=== PATIENT | female | born 1950 | race Caucasian/White ===

== ENCOUNTER 2019-12-22 08:01 | Outpatient (CLI) | payer MEDICARE, SELFPAY ==
--- NOTE | ~2019-12-22 | MM_ITS ---
EXAMINATION: MM screening tien BI w avelina HISTORY: Screening mammogram TECHNIQUE: Craniocaudal and mediolateral oblique 3-D tomosynthesis images were obtained and synthetic 2-D images were generated. CAD analysis was submitted and interpreted. COMPARISON: 12/15/2018 bilateral digital screening mammogram 10/24/2017 diagnostic right digital mammogram 10/08/2017 bilateral digital screening mammogram BREAST PARENCHYMAL COMPOSITION: The breasts are extremely dense, which lowers the sensitivity of mamm ography. FINDINGS: There are bilateral benign calcifications. There is no evidence of suspicious mass, calcifi cation, or architectural distortion to suggest malignancy in either breast. There has been no suspici ous interval change. IMPRESSION: 1. No mammographic evidence of malignancy. 2. Recommend routine screening mammography in one year. BI-RADS Category 2: Benign finding(s). Reviewed, dictated and finalized at location A. ICAL ASST
== END 2019-12-22 08:02 | disposition home or self-care (01) ==
LOC: ANHIMG 08:08
PROVIDERS: PCP Internal Medicine; Visit Provider Obstetrics & Gynecology
DX: Z12.31 Encounter for screening mammogram for malignant neoplasm of breast (principal)
CPT/HCPCS: 77063; 77067

== ENCOUNTER 2021-01-05 09:03 | Outpatient (CLI) | payer MEDICARE, SELFPAY ==
--- NOTE | ~2021-01-05 | MM_ITS ---
EXAMINATION: MM screening [facility] BI w avelina HISTORY: Screening mammogram TECHNIQUE: Craniocaudal and mediolateral oblique 3-D tomosynthesis images were obtained and synthetic 2-D images were generated. CAD analysis was submitted and interpreted. COMPARISON: 12/22/2019, 12/15/2018, 10/24/2017, 10/08/2017 BREAST PARENCHYMAL COMPOSITION: The breasts are extremely dense, which lowers the sensitivity of mamm ography. FINDINGS: Scattered benign-appearing calcifications are present. A stable asymmetry is present adjace nt to the biopsy marker in the right breast on the mediolateral oblique view, considered benign given the lack of interval change. There is no evidence of suspicious mass, calcification, or architectura l distortion to suggest malignancy in either breast. There has been no suspicious interval change. IMPRESSION: 1. No mammographic evidence of malignancy. 2. Recommend routine screening mammography in one year. BI-RADS Category 2: Benign finding(s). Reviewed, dictated and finalized at location A. GER CARGO
== END 2021-01-05 09:04 | disposition home or self-care (01) ==
LOC: ANHIMG 09:09
PROVIDERS: PCP Internal Medicine; Visit Provider Obstetrics & Gynecology
DX: Z12.31 Encounter for screening mammogram for malignant neoplasm of breast (principal)
CPT/HCPCS: 77063; 77067

== ENCOUNTER 2022-02-07 15:14 | Outpatient (CLI) | payer MEDICARE, SELFPAY ==
--- NOTE | ~2022-02-07 | MM_ITS ---
EXAMINATION: MM screening tien BI w avelina HISTORY: Screening mammogram TECHNIQUE: Craniocaudal and mediolateral oblique 3-D tomosynthesis images were obtained and synthetic 2-D images were generated. CAD analysis was submitted and interpreted. COMPARISON: 01/05/2021, 12/22/2019 BREAST PARENCHYMAL COMPOSITION: The breasts are extremely dense, which lowers the sensitivity of mamm ography. FINDINGS: Scattered benign-appearing calcifications are present. There is no suspicious mass, calcifi cation, or architectural distortion to suggest malignancy in either breast. There has been no suspici ous interval change. IMPRESSION: 1. No mammographic evidence of malignancy. 2. Recommend routine screening mammography in one year. BI-RADS Category 2: Benign finding(s). Reviewed, dictated and finalized at location A.
== END 2022-02-07 15:15 | disposition home or self-care (01) ==
PROVIDERS: PCP Internal Medicine; Visit Provider Obstetrics & Gynecology
DX: Z12.31 Encounter for screening mammogram for malignant neoplasm of breast (principal)
CPT/HCPCS: 77063; 77067

== ENCOUNTER → 2023-01-09 13:26 | Outpatient (CLI) | payer OTHER, SELFPAY ==
--- NOTE | ~2023-01-09 | DEXA_ITS ---
Bone Density Report Name: SAI GÓMEZ Age: 72 Sex: Female Ethnicity: White Date of : 1950 Indication: osteopenia; monitoring treatment; height loss; prior fracture; hysterectomy; postmenopausal Referring Provider: Speedy, Bal Study: Bone densitometry was performed. Exam Date: January 09, 2023 Accession number: [id number] Bone Density: Region BMD T-score Z-score Classification AP Spine (L1-L4) 0.899 -1.3 1.0 Osteopenia World Health Organization criteria for BMD impression classify patients as: Normal (T-score at or above -1.0), Osteopenia (T-score between -1.0 and -2.5), or Osteoporosis (T-score at or below -2.5). Previous Exams: Region Exam Age BMD T-score BMD Change BMD Change Date g/cm2 vs Baseline vs Previous AP Spine(L1-L4) 01/09/2023 72 0.899 -1.3 -0.026* 0.073* 07/16/2019 68 0.826 -2.0 -0.099* -0.099* 01/06/2017 66 0.925 -1.1 *Denotes significance at 95% confidence level, LSC for AP Spine = 0.022 g/cm2 Clinical Information Provided by Patient: Have had a previous hip or vertebral fracture Has had a low trauma fracture Is being treated for osteoporosis Has used the following medications: Fosamax (i.e. alendronate), Vitamin D, Calcium, MTV Has the following medical conditions: Hysterectomy, THYROID REMOVED Patient maximum height was 69 Menopause Age: 48 Does not regularly consume dairy products Onset of menses at age 13 Number of children 3 Impression: The patient has low bone mass, based on the Total Spine T-score. The patient has risk factors, including: previous fracture. No significant bone loss was observed. Discussion: PATIENT UNDER TREATMENT WITH NO SIGNIFICANT BMD LOSS SINCE LAST EXAM. In an untreated patient, BMD typically declines with age. A lack of decline or gain is usually a sign that treatment is efficacious and fracture risk is reduced. It is important to ask patients whether they are taking their medications and to encourage continued and appropriate compliance with their osteoporosis therapies to reduce fracture risk. It is also important to review their risk factors and encourage appropriate calcium and vitamin D intakes, exercise, fall prevention and other lifestyle measures. Follow-Up: Consider a repeat BMD and Vertebral Fracture Assessment (VFA) exam in 2 years or sooner if medically necessary, to reassess this patient's status. Reported by: LA on 01/09/2023 1:55:00 PM. Reviewed, dictated and finalized at location ABranden STEWART
== END ==
PROVIDERS: PCP Student in an Organized Health Care Education/Training Program; Visit Provider Student in an Organized Health Care Education/Training Program
DX: Z78.0 Asymptomatic menopausal state (principal); M85.88 Other specified disorders of bone density and structure, other site
CPT/HCPCS: 77080

== ENCOUNTER → 2023-04-02 09:55 | Outpatient (CLI) | payer OTHER, SELFPAY ==
--- NOTE | ~2023-04-02 | MM_ITS ---
EXAMINATION: MM screening tien BI w avelina HISTORY: Screening mammogram TECHNIQUE: Craniocaudal and mediolateral oblique 3-D tomosynthesis images were obtained and synthetic 2-D images were generated. CAD analysis was submitted and interpreted. COMPARISON: 02/07/2022, 01/05/2021, 12/22/2019 BREAST PARENCHYMAL COMPOSITION: The breasts are extremely dense, which lowers the sensitivity of mamm ography. FINDINGS: Scattered benign-appearing calcifications are present. No suspicious mass, calcification, o r architectural distortion are identified in either breast to suggest malignancy. There has been no s uspicious interval change. IMPRESSION: 1. No mammographic evidence of malignancy. 2. Recommend routine screening mammography in one year. BI-RADS Category 2: Benign finding(s). Reviewed, dictated and finalized at location A.
== END ==
PROVIDERS: PCP Obstetrics & Gynecology; Visit Provider Obstetrics & Gynecology
DX: Z12.31 Encounter for screening mammogram for malignant neoplasm of breast (principal)
CPT/HCPCS: 77063; 77067

== ENCOUNTER 2024-04-29 11:06 | Outpatient (CLI) | payer OTHER, SELFPAY ==
--- NOTE | ~2024-04-29 | MM_ITS ---
EXAMINATION: MM screening tien BI w avelina HISTORY: Screening TECHNIQUE: Craniocaudal and mediolateral oblique 3-D tomosynthesis images were obtained and synthetic 2-D images were generated. CAD analysis was submitted and interpreted. COMPARISON: Comparison to multiple prior studies sequentially, with oldest reviewed study dated 10/10. BREAST PARENCHYMAL COMPOSITION: Dense: The breasts are heterogeneously dense, which may obscure small masses FINDINGS: There is no evidence of suspicious mass, calcification, or architectural distortion to sugg est malignancy in either breast. There has been no suspicious interval change. IMPRESSION: 1. No mammographic evidence of malignancy. 2. Recommend routine screening mammography in one year. BI-RADS Category 1: Negative Reviewed, dictated and finalized at location B.
== END 2024-04-29 11:07 ==
PROVIDERS: PCP Student in an Organized Health Care Education/Training Program; Visit Provider Obstetrics & Gynecology
DX: Z12.31 Encounter for screening mammogram for malignant neoplasm of breast (principal)
CPT/HCPCS: 77063; 77067

== ENCOUNTER 2024-12-29 10:15 | Outpatient (CLI) | payer OTHER, SELFPAY ==
--- NOTE | ~2024-12-29 | DEXA_ITS ---
Bone Density Report Name: SAI GÓMEZ Age: 74 Sex: Female Ethnicity: White Date of : 1950 Indication: postmenopausal; screening for osteoporosis; height loss; hysterectomy; Referring Provider: PHYLICIA, FABY Study: Bone densitometry was performed. Exam Date: December 29, 2024 Accession number: [id number] Bone Density: Region BMD T-score Z-score Classification AP Spine(L1-L4) 0.906 -1.3 1.2 Osteopenia World Health Organization criteria for BMD impression classify patients as: Normal (T-score at or above -1.0), Osteopenia (T-score between -1.0 and -2.5), or Osteoporosis (T-score at or below -2.5). Clinical Information Provided by Patient: Has used the following medications: Fosamax (i.e. alendronate), Vitamin D, Calcium Has the following medical conditions: Hysterectomy Patient maximum height was 69.0 Menopause Age: 48 Onset of menses at age 12 Number of children 3 Impression: The patient has low bone mass, based on the Total Spine T-score. Discussion: BONE DENSITY IS LOW AT ONE OR MORE SKELETAL SITES. This patient's lowest T-score is low at one or more skeletal sites. It meets the World Health Organization's (WHO) criteria for ?low bone mass? (T-score between -1.0 and -2.5). The patient's 10-year risk of fracture as calculated by FRAX is less than the threshold where pharmacological therapy is recommended by the National Osteoporosis Foundation (NOF). However, all treatment decisions require clinical judgment and consideration of individual patient factors, including patient preferences, comorbidities, previous drug use, risk factors not captured in the FRAX model (e.g., frailty, falls, vitamin D deficiency, increased bone turnover, interval significant decline in bone density) and possible under or overestimation of fracture risk by FRAX. The patient should follow a healthful lifestyle (good nutrition with adequate calcium and vitamin D, and appropriate weight-bearing exercise). Follow-Up: Consider repeating this study in 2 to 3 years to reassess this patient's status, or sooner if there is some new clinical indication. Reported by: SANTIAGO huddleston 12/29/2024 10:45:00 AM. Reviewed, dictated and finalized at location [facility]
--- OUTSIDE RECORDS SUMMARY | 2024-12-29 10:29 | XMS_ITS | Clinical Summary ---
Author Organization [facility] Address [address] [place] [address] Care Team Providers Care Planogrammer Name Role Phone Bal Ruff Preethi ANDREW Primary Care Provider + Allergies Active Allergy Reactions Criticality Noted Date Comments Nitrofurantoin Unknown 11/26/2024 Penicillins Rash Low 01/02/2023 Tape Rash Medium 06/25/2023 Medications rosuvastatin (CRESTOR) 5 MG tabletIndications: Hyperlipidemia, unspecified hyperlipidemia type Take 1 tablet (5 mg total) by mouth nightly at bedtime. 90 tablet 1 09/09/20 23 Active Additional Information Patient not taking.Reported on 07/28/2024 levothyroxine (SYNTHROID) 88 MCG tabletIndications: Postoperative hypothyroidism take 1 tablet by mouth every day 90 tablet 1 07/26/20 24 Active alendronate (FOSAMAX) 70 MG tabletIndications: Age-related osteoporosis without current pathological fracture TAKE 1 TABLET BY MOUTH ONCE PER WEEK 12 tablet 2 08/16/20 24 Active gabapentin (NEURONTIN) 300 MG capsuleIndications :Lumbar radiculopathy TAKE 1 CAPSULE BY MOUTH FOUR TIMES A DAY 360 capsule 1 09/08/20 24 Active nitrofurantoin, macrocrystal-monoh ydrate, (MACROBID) 100 MG capsuleIndications :UTI (urinary tract infection) Take 1 capsule (100 mg total) by mouth 2 (two) times daily for 7 days. 14 capsule 11/26/19 25 025 sulfamethoxazole-t rimethoprim (BACTRIM DS) 800-160 MG tabletIndications: UTI (urinary tract infection) Take 1 tablet by mouth 2 (two) times daily for 7 days. 14 tablet 11/26/19 25 025 Active Problems Problem Noted Date Diagnosed Date Hyperlipidemia, unspecified hyperlipidemia type 09/09/2023 Lumbar radiculopathy 07/02/2023 Varicose veins of lower extremity 06/25/2023 Overview (07/02/2023): Last Assessment & Plan: Patient with bilateral lower extremity scattered spider veins, left anterior calf reticular vein. These are asymptomatic. No indication for surgical procedure intervention at this time. Educated patient the importance of compression therapy, leg elevation. Will refer to Dr. Hartman for management of spider veins. Patient to follow-up in the office on as-needed basis Varicose veins of right lower extremity with gaby n 06/25/2023 Overview (07/28/2024): Last Assessment & Plan: Healed ulceration louis to the right medial ankle with surrounding extensive reticular veins. Plan: Continue compression therapy and follow up in the next few weeks with a venous reflux bilaterally and to check for venous mechanical lead to the right ankle. Age-related osteoporosis wit hout current pathological fracture 01/05/2023 Postoperative hypothyroidism 01/02/2023 Resolved Problems Problem Noted Date Diagnosed Date Resolved Date Arthralgia of hip 02/12/2017 07/02/2023 Encounters Date Type Department Care Team Description 11/26/2024 Telephone [facility] Family & Internal Medicine [address] [phone] Bal Ruff, DO UTI from Last 3 Months Immunizations Name Administration Dates Next Due Influenza (Generic) 08/24/2014,08/19/2012 Influenza Adult (Generic) 10/13/2019,08/2018,08/25/2017,08/12/2016,2014 Pneumococcal (Prevnar 13) 07/20/2018 Tdap (Generic) 07/20/2018 Family History Medical History Relation Comments Heart Disease Mother Arthritis Sister 1 Cancer Sister 1 Miscarriages / Stillbirths Sister 1 Cancer Sister 2 Relation Status Comments Brother Father Mother Sister 1 Sister 2 Social History Tobacco Use Types Packs/Day Years Used Date Smoking Tobacco: Never Passive Smoke Exposure: Past Smokeless Tobacco: Never Tobacco Cessation:Counseling Given: Not Answered Passive Exposure Comments:spouse but never inside the house. 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 Gender Identity Not on file Sexual Orientation Not on file Occupation Industry Job Start Date Job End Date Not on file Not on file Not on file Not on file Last Filed Vital Signs Vital Sign Reading Time Taken Comments Blood Pressure 124/68 07/28/2024 8:26 AM CDT Pulse 67 07/28/2024 8:26 AM CDT Temperature 36.5 C (97.7 F) 07/28/2024 8:26 AM CDT Respiratory Rate 16 07/28/2024 8:26 AM CDT Oxygen Saturation 98% 07/28/2024 8:26 AM CDT Inhaled Oxygen Concentration - - Weight 63.9 kg (140 lb 14.4 oz) 07/28/2024 8:26 AM CDT Height 171.5 cm (5' 7.5 ) 07/28/2024 8:26 AM CDT Body Mass Index 21.74 07/28/2024 8:26 AM CDT Plan of Treatment Upcoming Encounters Date Type Department Care Team (Late st Contact Info) Description 01/26/2025 8:20 AM CDT Office Visit [facility] Family & Internal Medicine [address] [phone] Bal Ruff P, DO [address] [place] [phone] Health Maintenance Due Date Last Done Comments Annual Medicare Wellness Visit 2013 RSV Immunization or 60+ Years (1 - 1-dose 75+ series) 2023 Influenza Adult (#1) 2024 10/13/2019, 07/20/2018, 08/25/2017, Additional history exists PHQ-2 (Physician [place]) 11/10/2024 01/21/2024 Pneumococcal Vaccine: 65+ Years (2 of 2 - PPSV23 or PCV20) 01/20/2025 07/20/2018 Postponed from 07/20/2019 (Patient Refused) Zoster Vaccines (1 of 2) 01/20/2025 Pos tponed from 1998 (Patient Refused) COVID-19 Vaccine ( - season) 2025 Postponed from 07/11/2024 (Going to Outside Clinic) Colorectal Cancer Screening FIT-DNA (3 Years) 01/27/2027 01/28/2024, 01/28/2024, 01/17/2020 DTaP, Tdap and Td Vaccines (2 - Td or Tdap) 07/20/2028 07/20/2018 Dexa Scan (General) Completed 01/09/2023 Hepatitis C Completed 07/02/2023 Meningococcal B Vaccine Aged Out No l onger eligible based on patient's age to complete this topic Meningococcal Vaccine Aged Out No sherrell renita eligible based on patient's age to complete this topic RSV Immunizations Under 20 Months Aged Out No longer eligible based on patient's age to complete this topic Procedures Procedure Name Priority Date/Time Associated Diagnosis Comments COLOGUARD (EXACT SCIENCE) Routine 01/28/2024 7:00 AM CDT Screening for malignant neoplasm of colon HEPATITIS C ANTIBODY Routine 07/02/2023 9:12 AM CDT Annual physical exam Need for hepatitis C screening test BONE DENSITY GENERIC (SCAN ORDER) 01/09/2023 from Last 3 Months or Most Recently Relevant to Health Maintenance Results * COLOGUARD (EXACT SCIENCE) (01/28/2024 7:00 AM CDT) COLOGUARD RESULT Negative Negative [facility] (CLIA #:[id number]) Comment: NEGATIVE TEST RESULT. A negative Cologuard result indicates a low likelihood that a colorectal cancer (CRC) or advanced adenoma (adenomatous polyps with more advanced pre-malignant features) is present. The chance that a person with a negative Cologuard test has a colorectal cancer is less than 1 in 1500 (negative predictive value >99.9%) or has an advanced adenoma is less than 5.3% (negative predictive value 94.7%). These data are based on a prospective cross-sectional study of 10,000 individuals at average risk for colorectal cancer who were screened with both Cologuard and colonoscopy. (Rob Rea al, N Engl J Med 2014;370(14):4398-4502) The normal value (reference range) for this assay is negative. COLOGUARD RE-SCREENING RECOMMENDATION: Periodic colorectal cancer screening is an important part of preventive healthcare for asymptomatic individuals at average risk for colorectal cancer. Following a negative Cologuard result, the [place] Cancer Society and U.S. Multi-Society Task Force screening guidelines recommend a Cologuard re-screening interval of 3 years. References: [place] [employer] Guideline for Colorectal Cancer Screening: https://www.cancer.org/cancer/xubnh-latpml-mmlpvn/rkepevwro-ynqtqumik-igowoeq/ac s-rec ommendations.html.; Yobani ENGLISH, Hannah REYES, Bhanu SoodK, Colorectal Cancer Screening: Recommendations for Physicians and Patients from the U.S. Multi-Society Task Force on Colorectal Cancer Screening , Am J Gastroenterology 2017; 112:9535-6957. TEST DESCRIPTION: Composite algorithmic analysis of stool DNA-biomarkers with hemoglobin immunoassay. Quantitative values of individual biomarkers are not reportable and are not associated with individual biomarker result reference ranges. Cologuard is intended for colorectal cancer screening of adults of either sex, 45 years or older, who are at average-risk for colorectal cancer (CRC). Cologuard has been approved for use by the U.S. FDA. The performance of Cologuard was established in a cross sectional study of average-risk adults aged 50-84. Cologuard performance in patients ages 45 to 49 years was estimated by sub-group analysis of near-age groups. Colonoscopies performed for a positive result may find as the most clinically significant lesion: colorectal cancer [4.0%], advanced adenoma (including sessile serrated polyps greater than or equal to 1cm diameter) [20%] or non- advanced adenoma [31%]; or no colorectal neoplasia [45%]. These estimates are derived from a prospective cross-sectional screening study of 10,000 individuals at average risk for colorectal cancer who were screened with both Cologuard and colonoscopy. (Rob Rea al, N Engl J Med 2014;370(14):7658-0974.) Cologuard may produce a false negative or false positive result (no colorectal cancer or precancerous polyp present at colonoscopy follow up). A negative Cologuard test result does not guarantee the absence of CRC or advanced adenoma (pre-cancer). The current Cologuard screening interval is every 3 years. ([place] Cancer Society and U.S. Multi-Society Task Force). Cologuard performance data in a 10,000 patient pivotal study using colonoscopy as the reference method can be accessed at the following location: www.RealtyAPX/results. Additional description of the Cologuard test process, warnings and precautions can be found at www.cologJinnrd.Passbox. STOOL STOOL SPECIMEN / Unknown 01/28/2024 7:00 AM CDT 01/29/2024 8:22 AM CDT us Bal Ruff DO BODY FLUIDS AND STOOLS O RDERABLES Final Result Performing Organization Address [facility] Co de Phone Number [facility], [facility] [address] [phone], [facility] (CLIA #:[id number]) [address] [place] [address] * HEPATITIS C ANTIBODY ([facility] ONLY) (07/02/2023 9:12 AM CDT) HEPATITIS C AB NON-REACTI VE NON-REACT NOE 07/02/2023 7:32 PM CDT [facility] Comment: ANTIBODIES TO HCV NOT DETECTED. DOES NOT EXCLUDE THE POSSIBILITY OF EXPOSURE TO HCV. 07/02/2023 9:12 AM CDT Bal Ruff DO LABORATORY Final Re sult Performing Organization Address [facility] Co de Phone Number [facility] [address] [place] [id number] * BONE DENSITY GENERIC (01/09/2023) Anatomical Region Laterality Modality Other 01/09/2023 us Doc [facility] Scanned SCANNING Final Resu lt from Last 3 Months or Most Recently Relevant to Health Maintenance Insurance [employer] Care Teams Planogrammer Relationship Specialty Start Date End Date Bal Ruff DO [address] [place] [id number] PCP - General FAMILY PRACTICE 01/02/23
--- OUTSIDE RECORDS SUMMARY | 2024-12-29 10:29 | XMS_ITS | Referral Summary ---
Author Organization [facility] Address [address] [place] [address] Care Team Providers Care Concrete Vault Maker Name Role Phone Bal Ruff Primary Care Provide r Allergies Active Allergy Reactions Criticality Noted Date Comments Adhesive Rash Medium 06/25/2023 Penicillins Medications levothyroxine (SYNTHROID) 88 mcg tablet Take 1 tablet (88 mcg total) by mouth daily Active alendronate (FOSAMAX) 70 mg tablet Take 1 tablet (70 mg total) by mouth every 7 days 06/22/2023 Active gabapentin (NEURONTIN) 300 mg capsule Take 1 capsule (300 mg total) by mouth 4 (four) times a day Active Active Problems Problem Noted Date Diagnosed Date Varicose veins of right lower extremity with gaby n 06/25/2023 Assessment & Plan (08/04/2024 11:17 AM CDT): No bulky varicosities. Reticular veins noted to the right ankle and minor noted to the left ankle. No open ulcerations. Seen with Dr. Herr. Discussed the reflux study as well, and as she has no recurrence of ulcerations, would like to continue compression therapy and follow up as needed. If she starts to develop recurrent ulcerations with difficulty healing and follow-up sooner. Assessment & Plan (07/07/2024 11:10 AM CDT): Healed ulceration louis to the right medial ankle with surrounding extensive reticular veins. Plan: Continue compression therapy and follow up in the next few weeks with a venous reflux bilaterally and to check for venous corporate financial analyst to the right ankle. Assessment & Plan (07/07/2024 9:44 AM CDT): Reticular veins noted to the right lower extremity from the calf extending down into the ankle and foot. Has a healed ulceration to the medial ankle and starting to develop another. Is using triamcinolone cream currently. Plan: Continue utilize compression therapy, follow up in the next couple of weeks with a venous reflux to both lower extremities and to check for a venous corporate financial analyst. Assessment & Plan (06/25/2023 11:47 AM CDT): Patient with bilateral lower extremity scattered spider veins, left anterior calf reticular vein. These are asymptomatic. No indication for surgical procedure intervention at this time. Educated patient the importance of compression therapy, leg elevation. Will refer to Dr. Hartman for management of spider veins. 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 Care Teams Concrete Vault Maker Relationship Specialty Start Date End Date Bal Ruff DO [address] [place] [id number] PCP - General Family Medicine 06/23/23
--- OUTSIDE RECORDS SUMMARY | 2024-12-29 10:29 | XMS_ITS | Clinical Summary ---
Author Organization [facility] Address [address] [place] [address] Care Team Providers Care Soil Conservationist Name Role Phone Bal Ruff Primary Care [...] reflux bilaterally and to check for venous employee relations consultant to the right ankle. Assessment & Plan [...] extremities and to check for a venous employee relations consultant. Assessment & Plan (06/25/2023 11:47 AM CDT): [...] on as-needed basis Arthralgia of hip 02/12/2017 Family History Medical History Relation Name Comments Cancer Brother Family history of malignant neoplasm - (Added by TW Conv) Cancer Sister Family history of malignant neoplasm - (Added by TW Conv) Relation Name Status Comments Brother Sister Social History Tobacco Use Types Packs/Day Years Used Date Smoking Tobacco: Never Tobacco Cessation:Counseling Given: Not Answered Personal Safety Answer Date Recorded Getting School Help Needed Not on file 12/26 Comments Unknown Sex and Gender Information Value Date Recorded Sex Assigned at Not on file 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 Gender Identity Not on file Sexual Orientation Not on file Obstetrics History Last Filed Vital Signs Vital Sign Reading [...] 06/25/2023 9:28 AM CDT Plan of Treatment Health Maintenance Due Date Last Done Comments Colon Cancer Screening-Colonoscopy 1950 Depression Screening 1950 Fall Risk Assessment 1950 Hepatitis C Screening 1950 Osteoporosis Screening-Bone Density Scan 1950 Hepatitis B Screening 1966 Zoster Vaccine (1 of 2) 1998 Well Visit 65+ 2013 Pneumococcal vaccine 65+ (2 of 2 - PPSV23) 07/20/2019 07/20/2018 Influenza Vaccine (#1) 2024 9, 07/20/2018, 08/25/2017, Additional history exists DTaP/Tdap/Td Vaccine (2 - Td or Tdap) 07/20/2028 07/20/2018 Breast Cancer Screening-Mammogram Discontinued 013 Insurance [facility] Member Subscriber Plan / Payer (Ef fective 2022-Present) Name:Judit Gandara Relation to Subscriber:Self Name:Judit Gandara Payer ID:[id number] (NAIC) Type:MEDICARE RISK OTHER Address: [place] [id number] Care Teams Soil Conservationist Relationship Specialty Start Date End Date Bal Ruff DO [address] [place], [place] [id number] PCP - General Family Medicine 06/23/23
== END 2024-12-29 10:16 | disposition home or self-care (01) ==
LOC: ANHIMG 10:16
PROVIDERS: PCP Student in an Organized Health Care Education/Training Program; Visit Provider Student in an Organized Health Care Education/Training Program
DX: M81.0 Age-related osteoporosis without current pathological fracture (principal); M85.88 Other specified disorders of bone density and structure, other site
CPT/HCPCS: 77080

== ENCOUNTER 2025-05-02 10:18 | Outpatient (CLI) | payer OTHER, SELFPAY ==
--- NOTE | ~2025-05-02 | MM_ITS ---
EXAMINATION: MM screening tien BI w avelina HISTORY: Screening mammogram TECHNIQUE: Craniocaudal and mediolateral oblique 3-D tomosynthesis images were obtained and synthetic 2-D images were generated. CAD analysis was submitted and interpreted. COMPARISON: 04/29/2024, 04/02/2023, 02/07/2022 BREAST PARENCHYMAL COMPOSITION:Dense: The breasts are heterogeneously dense, which may obscure small masses. FINDINGS: No suspicious mass, calcification, or architectural distortion are identified in either toma ast to suggest malignancy. There has been no suspicious interval change. IMPRESSION: No mammographic evidence of malignancy. Recommend routine screening mammography in one year. BI-RADS Category 1: Negative Reviewed, dictated and finalized at location .
== END 2025-05-02 10:19 | disposition home or self-care (01) ==
PROVIDERS: PCP Student in an Organized Health Care Education/Training Program; Visit Provider Obstetrics & Gynecology
DX: Z12.31 Encounter for screening mammogram for malignant neoplasm of breast (principal)
CPT/HCPCS: 77063; 77067

== ENCOUNTER 2025-10-11 10:51 | Emergency (ER) | payer OTHER, SELFPAY ==
--- NOTE | ~2025-10-11 | XR_ITS ---
XR ankle LT min 3V, XR tibia fibula LT 2V 10/11/2025 12:59 Indication: Left leg pain after fall Procedure: 4 views left ankle and 2 views left tibia/fibula Comparison: No prior studies for comparison. Findings: No fracture, subluxation or dislocation. Ankle mortise intact. Talar dome within normal limits. Small degenerative calcaneal enthesophytes. There is osteoarthritis of the left knee. Osteopenia. Impression: 1: No acute fracture. Reviewed, dictated and finalized at location I. ANALYST Impression: 1: No acute fracture. Impression: 1: No acute fracture.
--- NOTE | ~2025-10-11 | CT_ITS ---
CT HEAD NON-CONTRAST CT C-SPINE Clinical History: fall Comparison: None Technique: Unenhanced axial images skull base to vertex. Coronal, sagittal reformats. Axial images thoracic inlet to skull base. Sagittal and coronal reformats. CT images acquired with automatic exposure control for dose reduction DLP: 605 mGy-cm Findings: Head: Left-sided holohemispheric subdural hemorrhage. 11 mm maximal thickness. 4 mm emrf-bu-lqdxv midline shift. Sulci, ventricles: Unremarkable. No evidence acute territorial infarct. Bony calvarium intact. Visualized paranasal sinuses: Ethmoid disease. Mastoid air cells: Clear. C-spine: No acute fracture. Straightening of normal cervical lordosis. Moderate degenerative changes, with disc disease C5-6. Prevertebral soft tissues within normal limits. Minimal grade 1 retrolisthesis C5 on 6. Visualized lung apices: Clear. Visualized thyroid: Unremarkable. No enlarged cervical nodes. Findings relayed via telephone by myself to Dr Shaikh at 1:42 PM EST. IMPRESSION: HEAD: 1. Left-sided holohemispheric subdural hemorrhage, 11 mm maximal thickness. 2. 4 mm mbqp-vk-jwnnp midline shift. C-SPINE: 1. No acute fracture. Reviewed, dictated and finalized at location R. [employer] IMPRESSION: HEAD: 1. Left-sided holohemispheric subdural hemorrhage, 11 mm maximal thickness. 2. 4 mm mgos-ex-etivg midline shift. C-SPINE: 1. No acute fracture. IMPRESSION: HEAD: 1. Left-sided holohemispheric subdural hemorrhage, 11 mm maximal thickness. 2. 4 mm ovsz-tp-shzbp midline shift. C-SPINE: 1. No acute fracture.
[2025-10-11 10:57] VITALS: BP 144/80; PULSE 78; RESP 20; TEMP 36.4; O2SAT 100
--- NOTE | 2025-10-11 12:12 | PC.NURSE ---
WOUND IRRIGATED WITH NS, 100ML. PATIENT TOLERATED WELL. STAPLER AND REMOVER PLACED AT BEDSIDE.
[2025-10-11] MEDS: HYDROcodone/acetaminophen (*CRX) 5-325 MG TABLET 1 TAB PO (12:17)
--- NOTE | 2025-10-11 13:14 | ED_ITS ---
HPI - General Adult General Chief complaint: Fall Stated complaint: fall Time Seen by Provider: 10/11/25 10:59 History of Present Illness HPI narrative: 74-year-old female presenting after a fall down her steps. Patient states she fell down about 10 steps hitting the left side of her head sustaining a 5 cm laceration. The patient reports a significant headache that has been well as left lower extremity pain. Patient denies loss of consciousness, dizziness, nausea/vomiting, vision changes, or sensitivity to light/sound. Patient is not on blood thinners. Related Data Allergies Allergy/AdvReac Type Severity Reaction Status Date / Time Penicillins Allergy Mild Rash Verified 10/11/25 11:06 Review of Systems 2 Review of Systems: All systems reviewed & are unremarkable except as noted in HPI and below PMFSH Past Medical History Medical History Hypothyroidism Osteoarthritis of hands, bilateral Peripheral polyneuropathy Surgical History Surgical History Status post total hip replacement, bilateral Family History Family History Mother Family history of congestive heart failure, Onset Age: 98 Social History Social History (Updated 09/25/22 @ 08:53 by Vee Sosa MA) Smoking status: Never smoker Second hand tobacco smoke exposure: No Alcohol intake: current Substance use: never Lack of Transportation: No Lack of Food: Never True Current Housing: I Have Housing Concerned About Future Housing: No Difficulty Paying Gas/Electric Bills: No Difficulty Paying for Meds: No Currently Unemployed: No Education: High School Diploma/GED Difficulty w/ Childcare or Family Care: No Exam 2 Narrative: GENERAL: No acute distress. HEAD: L-sided lateral-posterior laceration about 5 cm. Bleeding controlled. Significant amount of blood matted in her hair. EYES: PERRLA and EOMI. ENT: Nares clear, no rhinorrhea or epistaxis. Mucous membranes moist. Oropharynx without tonsillar hypertrophy exudate or other lesions. Bilateral TMs pearly garg non-bulging NECK: Supple. No adenopathy or masses. No carotid bruits or JVD CHEST: Clear to auscultation. No respiratory distress. No wheezes rales or rhonchi HEART: Regular rate and rhythm. No murmur heard. Normal peripheral pulses. ABDOMEN: Soft, nontender, nondistended, normal active bowel sounds. EXTREMITIES: Normal range of motion. No edema. SKIN: Warm, dry, no rash. NEURO: A&O X3. Speech clear. Follows commands. CN II-XII intact. Sensation grossly intact. No ataxic movements. Strength 5/5 in upper and lower extremities bilaterally. [id number]-gz-xitb testing intact bilaterally. No pronator drift. Gait evaluation limited due to LLE pain from fall. PSYCH: Normal mood and affect Course Vital Signs Vital signs: Vital Signs Temperature 97.5 F L 10/11/25 10:57 Pulse Rate 78 10/11/25 10:57 Respiratory Rate 20 10/11/25 10:57 Blood Pressure 144/80 H 10/11/25 10:57 Pulse Oximetry 100 10/11/25 10:57 Oxygen Delivery Room Air 10/11/25 10:57 Temperature 97.5 F L 10/11/25 10:57 Pulse Rate 84 10/11/25 14:53 Respiratory Rate 16 10/11/25 14:53 Blood Pressure 126/84 10/11/25 14:53 Pulse Oximetry 98 10/11/25 14:53 Oxygen Delivery Room Air 10/11/25 10:57 MDM MDM Narrative Medical decision making narrative: 74-year-old female presenting after a fall down her steps. Patient states she fell down about 10 steps hitting the left side of her head sustaining a 5 cm laceration. The patient reports a significant headache that has been well as left lower extremity pain. Patient denies loss of consciousness, dizziness, nausea/vomiting, vision changes, or sensitivity to light/sound. Patient is not on blood thinners. Upon my initial assessment patient is nontoxic and has stable vitals. She has a significant amount of matted blood surrounding her head laceration. Bleeding is controlled. Imaging demonstrates left-sided holohemispheric subdural hemorrhage, 11 mm maximal thickness with 4 mm fiwj-id-cqeop midline shift. No acute neck fracture. No acute left lower extremity fractures. Patient's neuro exam is promising with no focal deficits. Administered [place] which has improved patient's pain. Discussed with Dr. Rivera with [facility] Emergency Department patient presentation and workup. Agrees with transfer at this time. Patient is stable pending transfer. While awaiting transport patient suddenly became pale and hypotensive. She recovered quickly. Blood pressure recheck was 113/58 and paleness improved. Repeat neuro exam remains intact. Continuing to monitor. Was unable to staple laceration prior to transport. Irrigated and placed a dressing. Did not inquire about tetanus; however patient's chart indicates last tetanus in 2019. Differential Diagnosis Differential Diagnosis: Differential diagnostic considerations for head injury/trauma include post- concussion syndrome, closed head injury, intercranial hemorrhage, basilar skull fracture, facial fractures, globe injury, laceration. Medical Records I have reviewed the following patient records and this information was taken into consideration when formulating the assessment and plan.: previous labs Lab Data MDM Lab Attestation statement: I personally reviewed the patient's lab results. 10/11/25 13:09 10/11/25 13:09 Labs: Lab Results 10/11/25 Range/Units 13:09 WBC 9.9 (4.5-10.0) K/mm3 RBC 3.88 L (4.2-5.4) M/mm3 Hgb 12.1 (12.0-15.0) g/dL Hct 36.1 L (37.0-47.0) % MCV 93.0 (80-100) fl MCH 31.2 (26-34) pg MCHC 33.5 (32-36) g/dl RDW 13.3 (11.5-14.5) % Plt Count 298 (150-375) k/mm3 MPV 8.9 (7.4-10.4) fl Immature Gran % (Auto) 0.6 H (0-0.5) % Neut % (Auto) 83.7 H (45.5-73.1) % Lymph % (Auto) 7.3 L (18.3-44.2) % Burke % (Auto) 7.0 (2.6-8.5) % Eos % (Auto) 1.0 (0-4.4) % Baso % (Auto) 0.4 (0.2-1.2) % Lymph # (Auto) 0.72 L (0.9-3.2) K/mm3 Burke # (Auto) 0.7 H (0.1-0.6) K/mm3 Eos # (Auto) 0.1 (0-0.3) K/mm3 Baso # (Auto) 0.0 (0.0-0.1) K/mm3 Abs Immat Gran (auto) 0.06 H (0.00-0.031) K/mm3 Absolute Neuts (auto) 8.3 H (1.3-6.7) K/mm3 Absolute Nucleated RBC 0.000 (0.0-0.012) K/mm3 Nucleated RBC % 0.0 (0.0-0.2) % PT 14.2 (11.1-14.7) Seconds INR 1.1 APTT 30.5 (22.3-36.8) Seconds Sodium 130 L (137-145) mmol/L Potassium 3.8 (3.4-5.0) mmol/L Chloride 98 (98-107) mmol/L Carbon Dioxide 27 (22-30) mmol/L Anion Gap 5 (4-12) mmol/L BUN 10 (7-17) mg/dL Creatinine 0.58 L (0.7-1.0) mg/dL Estim Creat Clear Calc 68 ml/min Estimated GFR > 60 (59 - ) Glucose 122 H (65-110) mg/dL Calcium 8.7 (8.4-10.2) mg/dL Total Bilirubin 0.5 (0.2-1.3) mg/dL AST 37 H (14-36) U/L ALT 21 (6-35) U/L Alkaline Phosphatase 68 (38-126) U/L Total Protein 7.4 (6.3-8.2) g/dL Albumin 4.2 (3.5-5.1) g/dL Imaging Data Attestation: I personally reviewed and interpreted this imaging study as follows: Radiologist's impression: ITS Impressions Cervical Spine CT 10/11/25 12:37 IMPRESSION: HEAD: 1. Left-sided holohemispheric subdural hemorrhage, 11 mm maximal thickness. 2. 4 mm csov-hl-mqezv midline shift. C-SPINE: 1. No acute fracture. Head CT 10/11/25 12:37 IMPRESSION: HEAD: 1. Left-sided holohemispheric subdural hemorrhage, 11 mm maximal thickness. 2. 4 mm ueui-fq-brkwh midline shift. C-SPINE: 1. No acute fracture. Ankle X-Ray 10/11/25 13:03 Impression: 1: No acute fracture. Tibia/Fibula X-Ray 10/11/25 13:03 Impression: 1: No acute fracture. Discharge Plan Discharge Clinical Impression: Subdural hemorrhage following injury, Laceration of head, Head injury, Fall Patient Disposition: Acute Care Hospital Condition: Stable Patient Language: Dutch Prescriptions: No Action alendronate 70 mg tablet See Rx Instructions .ROUTE .COMPLEX Qty: 12 2RF Dose Instruction: TAKE 1 TABLET BY MOUTH ONCE PER WEEK Rx Instructions: TAKE 1 TABLET BY MOUTH ONCE PER WEEK levothyroxine 88 mcg tablet 88 mcg PO DAILY Qty: 90 1RF gabapentin 300 mg capsule 300 mg PO QID Qty: 360 1RF Rx Instructions: Take 1 capsule by mouth 4 times a day. naproxen 500 mg tablet 500 mg PO BID Qty: 90 1RF Follow-up/Referrals: Speedy,DO Bal [Primary Care Provider]
[2025-10-11 13:17] VITALS: BP 137/62; PULSE 98; RESP 16; O2SAT 99
[2025-10-11 13:19] LABS: Hematocrit 36.1 % (37.0-47.0); Hemoglobin 12.1 g/dL (12.0-15.0); Immature Granulocyte Percent A 0.6 % (0-0.5); Lymphocytes Absolute Auto 0.72 K/mm3 (0.9-3.2); Mean Corpuscular HGB Conc 33.5 g/dl (32-36); Mean Corpuscular Hemoglobin 31.2 pg (26-34); Mean Corpuscular Volume 93.0 fl (80-100); Nucleated Red Blood Cells Absolute Auto 0.000 K/mm3 (0.0-0.012); Nucleated Red Blood Cells Perc 0.0 % (0.0-0.2); Platelet Count Result 298 k/mm3 (150-375); Red Blood Count 3.88 M/mm3 (4.2-5.4); White Blood Count 9.9 K/mm3 (4.5-10.0)
[2025-10-11 13:22] VITALS: BP 137/69
[2025-10-11 13:31] LABS: Alanine Aminotransferase 21 U/L (6-35); Albumin Level 4.2 g/dL (3.5-5.1); Alkaline Phosphatase 68 U/L (38-126); Anion Gap 5 mmol/L (4-12); Aspartate Amino Transferase 37 U/L (14-36); Bilirubin,Total 0.5 mg/dL (0.2-1.3); Blood Urea Nitrogen 10 mg/dL (7-17); Calcium 8.7 mg/dL (8.4-10.2); Carbon Dioxide 27 mmol/L (22-30); Chloride 98 mmol/L (98-107); Estimated CRCL calculation 68 ml/min; Estimated Glomerular Filt Rate > 60; Glucose 122 mg/dL (65-110); Potassium 3.8 mmol/L (3.4-5.0); Sodium 130 mmol/L (137-145); Total Protein 7.4 g/dL (6.3-8.2)
[2025-10-11 13:52] LABS: INR 1.1; Prothrombin Time 14.2 Seconds (11.1-14.7)
[2025-10-11 13:53] LABS: Partial Thromboplastin Time 30.5 Seconds (22.3-36.8)
[2025-10-11 14:00] VITALS: BP 86/50; PULSE 73; RESP 12; O2SAT 97
--- NOTE | 2025-10-11 14:07 | PC.NURSE ---
patient noted to have decreased BP after oral pain management. pain had initially been improved but spiked with blowing her nose. help morphine as VS and patient clinically did not support taking more narcotic pain medications.
[2025-10-11 14:53] VITALS: BP 126/84; PULSE 84; RESP 16; O2SAT 98
== END 2025-10-11 14:55 | disposition short-term general hospital (02) ==
LOC: ANHED 11:16
PROVIDERS: PCP Student in an Organized Health Care Education/Training Program
DX: S06.5X0A Traumatic subdural hemorrhage without loss of consciousness, initial encounter (principal); S01.01XA Laceration without foreign body of scalp, initial encounter; E03.9 Hypothyroidism, unspecified; M19.042 Primary osteoarthritis, left hand; M19.041 Primary osteoarthritis, right hand; G62.9 Polyneuropathy, unspecified; Z96.643 Presence of artificial hip joint, bilateral; Z79.899 Other long term (current) drug therapy; W10.9XXA Fall (on) (from) unspecified stairs and steps, initial encounter
CPT/HCPCS: 36415; 70450; 72125; 73590; 73610; 80053; 85025; 85610; 85730; 96374; 99285; A9270; J2405